=== PATIENT | male | born 1995 | race Caucasian/White ===

== ENCOUNTER 2016-09-29 19:57 | Emergency (ER) | payer BC, OTHER ==
[~2016-09-29] VITALS: Ht 182.9 cm; Wt 90.7 kg
[~2016-09-29 19:57] MED LIST: ACETAMINOPHEN PO; AMOXICILLIN875 MG PO; KEPPRA1000 MG PO; KEPPRA500 M1 PO; KEPPRA500 M2 PO; LEVAQUIN PO; NO MEDICATIONS; TYLENOL #3 PO
[2016-09-29] MEDS ORDERED: KEPPRA500 M2 PO (20:06)
[2016-09-29] MEDS ORDERED: ANXIETY MED (20:06)
== END 2016-09-29 20:44 | disposition home or self-care (01) ==
LOC: SED 19:57
DX: Z76.0 Encounter for issue of repeat prescription (principal); F17.200 Nicotine dependence, unspecified, uncomplicated; R03.0 Elevated blood-pressure reading, without diagnosis of hypertension; G40.909 Epilepsy, unspecified, not intractable, without status epilepticus; Z79.899 Other long term (current) drug therapy
CPT/HCPCS: 99281

== ENCOUNTER 2016-11-20 15:15 | Emergency (ER) | payer OTHER ==
[~2016-11-20 15:15] MED LIST changes: +ANXIETY MED
== END 2016-11-20 16:01 | disposition home or self-care (01) ==
LOC: SED 15:15
DX: Z76.0 Encounter for issue of repeat prescription (principal); G40.909 Epilepsy, unspecified, not intractable, without status epilepticus; F17.200 Nicotine dependence, unspecified, uncomplicated; Z79.899 Other long term (current) drug therapy
CPT/HCPCS: 99281